=== PATIENT | female | born 1975 | race Two or more races ===

== ENCOUNTER 2018-06-13 08:09 | Outpatient (CLI) | payer OTHER | END 2018-06-13 08:13 | disposition home or self-care (01) | LOC: LAB 08:09 | DX: R59.0 Localized enlarged lymph nodes (principal); E03.8 Other specified hypothyroidism; D50.8 Other iron deficiency anemias; D51.8 Other vitamin B12 deficiency anemias; I10 Essential (primary) hypertension; D51.1 Vitamin B12 deficiency anemia due to selective vitamin B12 malabsorption with proteinuria; D51.0 Vitamin B12 deficiency anemia due to intrinsic factor deficiency; B20 Human immunodeficiency virus [HIV] disease; B18.8 Other chronic viral hepatitis; E06.3 Autoimmune thyroiditis; E27.8 Other specified disorders of adrenal gland ==

== ENCOUNTER 2018-06-13 09:05 | Outpatient (CLI) | payer OTHER | END 2018-06-13 09:55 | disposition home or self-care (01) | LOC: SONOGRAMA 09:05 | DX: R59.0 Localized enlarged lymph nodes (principal); E03.8 Other specified hypothyroidism ==

== ENCOUNTER 2018-12-29 09:43 | Outpatient (CLI) | payer OTHER | END 2018-12-29 15:00 | disposition home or self-care (01) | LOC: LAB 09:43 | DX: K21.9 Gastro-esophageal reflux disease without esophagitis (principal); D51.8 Other vitamin B12 deficiency anemias ==

== ENCOUNTER 2019-01-23 08:15 | Outpatient (CLI) | payer OTHER | END 2019-01-23 08:51 | disposition home or self-care (01) | LOC: LAB 08:15 | DX: R59.0 Localized enlarged lymph nodes (principal); B27.90 Infectious mononucleosis, unspecified without complication; D51.1 Vitamin B12 deficiency anemia due to selective vitamin B12 malabsorption with proteinuria; E03.8 Other specified hypothyroidism; D50.8 Other iron deficiency anemias; D51.8 Other vitamin B12 deficiency anemias; I10 Essential (primary) hypertension; K90.89 Other intestinal malabsorption ==

== ENCOUNTER 2019-02-06 09:12 | Outpatient (CLI) | payer OTHER | END 2019-02-06 09:15 | disposition home or self-care (01) | LOC: SONOGRAMA 09:12 | DX: I11.9 Hypertensive heart disease without heart failure (principal); R06.02 Shortness of breath; D51.1 Vitamin B12 deficiency anemia due to selective vitamin B12 malabsorption with proteinuria; B27.90 Infectious mononucleosis, unspecified without complication; R59.0 Localized enlarged lymph nodes; E03.8 Other specified hypothyroidism ==

== ENCOUNTER 2019-07-17 08:12 | Outpatient (CLI) | payer OTHER | END 2019-07-17 08:20 | disposition home or self-care (01) | LOC: LAB 08:12 | DX: D51.1 Vitamin B12 deficiency anemia due to selective vitamin B12 malabsorption with proteinuria (principal); B27.90 Infectious mononucleosis, unspecified without complication; R59.0 Localized enlarged lymph nodes; E03.8 Other specified hypothyroidism; D50.8 Other iron deficiency anemias; I10 Essential (primary) hypertension ==

== ENCOUNTER 2019-08-04 08:45 | Outpatient (CLI) | payer OTHER | END 2019-08-04 08:52 | disposition home or self-care (01) | LOC: SONOGRAMA 08:45 | DX: N17.8 Other acute kidney failure (principal); R80.8 Other proteinuria ==

== ENCOUNTER 2020-01-16 08:25 | Outpatient (CLI) | payer OTHER | END 2020-01-16 09:08 | disposition home or self-care (01) | LOC: LAB 08:25 | DX: D51.1 Vitamin B12 deficiency anemia due to selective vitamin B12 malabsorption with proteinuria (principal); B27.90 Infectious mononucleosis, unspecified without complication; R59.0 Localized enlarged lymph nodes; E03.8 Other specified hypothyroidism; D50.8 Other iron deficiency anemias; D51.8 Other vitamin B12 deficiency anemias; I10 Essential (primary) hypertension; R97.0 Elevated carcinoembryonic antigen [CEA]; R97.8 Other abnormal tumor markers ==

== ENCOUNTER → 2020-06-10 08:10 | Outpatient (CLI) | payer OTHER | END | disposition home or self-care (01) | LOC: LAB 08:10 | PROVIDERS: ATTEND Internal Medicine Hematology & Oncology | DX: E03.8 Other specified hypothyroidism (principal); L65.8 Other specified nonscarring hair loss; D50.8 Other iron deficiency anemias; I10 Essential (primary) hypertension; B27.90 Infectious mononucleosis, unspecified without complication; E23.0 Hypopituitarism; R89.1 Abnormal level of hormones in specimens from other organs, systems and tissues; D51.1 Vitamin B12 deficiency anemia due to selective vitamin B12 malabsorption with proteinuria; R59.0 Localized enlarged lymph nodes ==

== ENCOUNTER 2021-01-12 07:07 | Outpatient (CLI) | payer OTHER | END 2021-01-12 07:18 | disposition home or self-care (01) | LOC: LAB 07:07 | PROVIDERS: ATTEND Internal Medicine Hematology & Oncology | DX: D50.8 Other iron deficiency anemias (principal); I10 Essential (primary) hypertension; E03.8 Other specified hypothyroidism; D51.1 Vitamin B12 deficiency anemia due to selective vitamin B12 malabsorption with proteinuria; B27.90 Infectious mononucleosis, unspecified without complication; R59.0 Localized enlarged lymph nodes ==

== ENCOUNTER → 2021-06-19 08:34 | Outpatient (CLI) | payer OTHER | END | disposition home or self-care (01) | LOC: LAB 08:34 | PROVIDERS: ATTEND Internal Medicine Hematology & Oncology | DX: I10 Essential (primary) hypertension (principal); R79.89 Other specified abnormal findings of blood chemistry; R74.02 Elevation of levels of lactic acid dehydrogenase [LDH]; E03.8 Other specified hypothyroidism; B27.99 Infectious mononucleosis, unspecified with other complication; D50.8 Other iron deficiency anemias; C56.9 Malignant neoplasm of unspecified ovary; R97.0 Elevated carcinoembryonic antigen [CEA]; R97.8 Other abnormal tumor markers; B27.90 Infectious mononucleosis, unspecified without complication; R59.0 Localized enlarged lymph nodes; E78.2 Mixed hyperlipidemia; E56.8 Deficiency of other vitamins; N19 Unspecified kidney failure; E11.9 Type 2 diabetes mellitus without complications; R80.8 Other proteinuria; K92.1 Melena; Z12.11 Encounter for screening for malignant neoplasm of colon; D51.1 Vitamin B12 deficiency anemia due to selective vitamin B12 malabsorption with proteinuria ==

== ENCOUNTER 2021-12-25 07:23 | Outpatient (CLI) | payer OTHER | END 2021-12-25 07:45 | disposition home or self-care (01) | LOC: LAB 07:23 | PROVIDERS: ATTEND Internal Medicine Hematology & Oncology | DX: D64.9 Anemia, unspecified (principal); D50.8 Other iron deficiency anemias; I10 Essential (primary) hypertension ==

== ENCOUNTER 2022-07-23 07:19 | Outpatient (CLI) | payer OTHER | END 2022-07-23 07:45 | disposition home or self-care (01) | LOC: LAB 07:19 | PROVIDERS: ATTEND Internal Medicine Hematology & Oncology | DX: D50.8 Other iron deficiency anemias (principal); R79.9 Abnormal finding of blood chemistry, unspecified; I10 Essential (primary) hypertension; R74.02 Elevation of levels of lactic acid dehydrogenase [LDH]; K76.89 Other specified diseases of liver; D51.8 Other vitamin B12 deficiency anemias; E55.9 Vitamin D deficiency, unspecified; E03.8 Other specified hypothyroidism; D51.1 Vitamin B12 deficiency anemia due to selective vitamin B12 malabsorption with proteinuria; D72.818 Other decreased white blood cell count; B27.90 Infectious mononucleosis, unspecified without complication; R59.0 Localized enlarged lymph nodes ==

== ENCOUNTER 2022-11-29 07:18 | Outpatient (CLI) | payer OTHER | END 2022-11-29 07:23 | disposition home or self-care (01) | LOC: MRI 07:18 | PROVIDERS: ATTEND Internal Medicine Geriatric Medicine | DX: H81.4 Vertigo of central origin (principal) | CPT/HCPCS: 70551 ==

== ENCOUNTER 2022-12-03 08:21 | Outpatient (CLI) | payer OTHER | END 2022-12-03 08:22 | disposition home or self-care (01) | LOC: NUCLEAR 08:21 | PROVIDERS: ATTEND Internal Medicine Geriatric Medicine | DX: I65.29 Occlusion and stenosis of unspecified carotid artery (principal) ==

== ENCOUNTER 2023-01-20 08:13 | Outpatient (CLI) | payer OTHER | END 2023-01-20 08:14 | disposition home or self-care (01) | LOC: LAB 08:13 | PROVIDERS: ATTEND Internal Medicine Hematology & Oncology | DX: D50.8 Other iron deficiency anemias (principal); R79.9 Abnormal finding of blood chemistry, unspecified; I10 Essential (primary) hypertension; R74.02 Elevation of levels of lactic acid dehydrogenase [LDH]; K76.89 Other specified diseases of liver; D51.8 Other vitamin B12 deficiency anemias; E55.9 Vitamin D deficiency, unspecified; E03.8 Other specified hypothyroidism; D51.1 Vitamin B12 deficiency anemia due to selective vitamin B12 malabsorption with proteinuria; D72.818 Other decreased white blood cell count; B27.90 Infectious mononucleosis, unspecified without complication; R59.0 Localized enlarged lymph nodes ==

== ENCOUNTER → 2023-07-19 09:36 | Outpatient (CLI) | payer OTHER | END | disposition home or self-care (01) | LOC: LAB 09:36 | PROVIDERS: ATTEND Internal Medicine Hematology & Oncology | DX: D50.8 Other iron deficiency anemias (principal); R79.9 Abnormal finding of blood chemistry, unspecified; I10 Essential (primary) hypertension; R74.02 Elevation of levels of lactic acid dehydrogenase [LDH]; K76.89 Other specified diseases of liver; D51.8 Other vitamin B12 deficiency anemias; E55.9 Vitamin D deficiency, unspecified; E03.8 Other specified hypothyroidism; R97.8 Other abnormal tumor markers; R97.1 Elevated cancer antigen 125 [CA 125]; D51.1 Vitamin B12 deficiency anemia due to selective vitamin B12 malabsorption with proteinuria; D72.818 Other decreased white blood cell count; B27.90 Infectious mononucleosis, unspecified without complication; R59.0 Localized enlarged lymph nodes ==

== ENCOUNTER 2023-08-04 09:17 | Outpatient (CLI) | payer OTHER | END 2023-08-04 09:30 | disposition home or self-care (01) | LOC: TOM 09:17 | PROVIDERS: ATTEND Surgery | DX: K40.90 Unilateral inguinal hernia, without obstruction or gangrene, not specified as recurrent (principal) ==

== ENCOUNTER 2023-08-21 13:55 | Outpatient (CLI) | payer OTHER | END 2023-08-21 14:07 | disposition home or self-care (01) | LOC: TOM 13:55 | PROVIDERS: ATTEND Urology | DX: N20.0 Calculus of kidney (principal) ==

== ENCOUNTER 2023-11-20 08:41 | Outpatient (CLI) | payer OTHER ==
[2023-11-20 09:47] LABS: HEMATOCRIT 37.7 % (36.0-45.00); HEMOGLOBIN 13.1 g/dL (12.0-15.00); MEAN CELL VOLUME 93.8 fL (80.00-100.00); MEAN CORPUSCULAR HEMOGLOBIN 32.5 pg (27.00-32.0); MEAN CORPUSCULAR HGB CONC 34.7 g/dl (32.0-36.0); PLATELET COUNT 345 K/uL (150-450); RED BLOOD COUNT 4.02 M/uL (4.00-6.00); RED CELL DISTRIBUTION WIDTH 12.7 % (11.5-14.5)
[2023-11-20 10:23] LABS: ALBUMIN 3.3 gm/dL (3.4-5.0); BILIRUBIN TOTAL 0.39 mg/dL (0.3-1.2); CALCIUM 9.9 mg/dL (8.5-10.1); CHOL HDL RATIO 1.7 (0-5.0); CREATININE SERUM 0.94 mg/dL (0.55-1.02); GFR 63.83; GLOBULINA 3.7 G/DL (2.4-3.5); POTASSIUM 5.01 mEq/L (3.5-5.1); T4 FREE 1.1 NG/ML (0.76-1.46); TSH 2.01 uIU/mL (0.358-3.74)
[2023-11-20 10:24] LABS: PH,URINE 6.5 (5.0-8.0); URINE APPEARANCE Clear; URINE BILIRRUBIN Negative (NEGATIVE); URINE BLOOD Small; URINE COLOR Yellow; URINE GLUCOSE Negative (NEGATIVE); URINE LEUKOCYTE Negative; URINE NITRATE Negative; URINE PROTEIN Negative (NEGATIVE); URINE UROBILINOGEN 0.2 E.U./dl
[2023-11-20 10:29] LABS: URINE BACTERIA 22.6 uL (0.0-1933); URINE EPITHELIAL CELLS 2.5 uL (0.0-38.8); URINE RBC 11.4 uL (0.0-20.8)
[2023-11-20 10:31] LABS: URINE WBC 0.1 uL (0.0-23.2)
[2023-11-20 10:45] LABS: FOLIC ACID > 20.00 ng/ml (4.78-20)
[2023-11-20 13:16] LABS: MANUAL PLATELET COUNT 520
[2023-11-20 13:17] LABS: PLATELET ESTIMATE INCREASED (NORMAL)
== END 2023-11-20 08:43 | disposition home or self-care (01) ==
LOC: LAB 08:41
PROVIDERS: ATTEND Internal Medicine Hematology & Oncology
DX: D51.1 Vitamin B12 deficiency anemia due to selective vitamin B12 malabsorption with proteinuria (principal); D72.818 Other decreased white blood cell count; B27.90 Infectious mononucleosis, unspecified without complication; R59.0 Localized enlarged lymph nodes; E03.8 Other specified hypothyroidism

== ENCOUNTER 2023-12-19 08:50 | Outpatient (CLI) | payer OTHER | END 2023-12-19 09:01 | disposition home or self-care (01) | LOC: MRI 08:50 | PROVIDERS: ATTEND Internal Medicine Hematology & Oncology | DX: D51.1 Vitamin B12 deficiency anemia due to selective vitamin B12 malabsorption with proteinuria (principal); D72.818 Other decreased white blood cell count; B27.90 Infectious mononucleosis, unspecified without complication; R59.0 Localized enlarged lymph nodes; E03.8 Other specified hypothyroidism | CPT/HCPCS: 72197; 74183 ==

== ENCOUNTER → 2024-06-28 08:19 | Outpatient (CLI) | payer OTHER ==
[2024-06-28 09:26] LABS: HEMOGLOBIN 12.8 g/dL (12.0-15.00); MEAN CELL VOLUME 94.2 fL (80.00-100.00); MEAN CORPUSCULAR HEMOGLOBIN 32.6 pg (27.00-32.0); MEAN CORPUSCULAR HGB CONC 34.6 g/dl (32.0-36.0); PLATELET COUNT 231 K/uL (150-450); RED BLOOD COUNT 3.92 M/uL (4.00-6.00); RED CELL DISTRIBUTION WIDTH 12.7 % (11.5-14.5)
[2024-06-28 10:04] LABS: % SATURACION 24.8 % (15-50); ALBUMIN 3.5 gm/dL (3.4-5.0); BILIRUBIN TOTAL 0.39 mg/dL (0.3-1.2); CALCIUM 9.2 mg/dL (8.5-10.1); CREATININE SERUM 0.85 mg/dL (0.55-1.02); FERRITIN 25.2 NG/ML (8-252); GFR 71.38; GLOBULINA 3.3 G/DL (2.4-3.5); PHOSPHOROUS 3.4 mg/dL (2.5-4.9); POTASSIUM 4.37 mEq/L (3.5-5.1); TOTAL PROTEIN 6.8 gm/dL (6.4-8.2)
[2024-06-28 11:28] LABS: VITAMIN D3 25 HYDROXY 62.55 ng/ml (30-120)
[2024-06-29 07:57] LABS: PLATELET ESTIMATE NORMAL (NORMAL)
[2024-06-29 08:13] LABS: MANUAL PLATELET COUNT 330
[2024-06-29 09:07] LABS: CA 125 8.6 U/mL (0.0-38.1); CA 15-3 23.8 U/mL (0.0-25.0)
== END | disposition home or self-care (01) ==
LOC: LAB 08:19
PROVIDERS: ATTEND Internal Medicine Hematology & Oncology
DX: D50.8 Other iron deficiency anemias (principal); R79.9 Abnormal finding of blood chemistry, unspecified; I10 Essential (primary) hypertension; R74.02 Elevation of levels of lactic acid dehydrogenase [LDH]; K76.89 Other specified diseases of liver; E55.9 Vitamin D deficiency, unspecified; C50.919 Malignant neoplasm of unspecified site of unspecified female breast; R97.8 Other abnormal tumor markers; C56.9 Malignant neoplasm of unspecified ovary; R97.1 Elevated cancer antigen 125 [CA 125]; R97.0 Elevated carcinoembryonic antigen [CEA]; D51.1 Vitamin B12 deficiency anemia due to selective vitamin B12 malabsorption with proteinuria; D72.818 Other decreased white blood cell count; B27.90 Infectious mononucleosis, unspecified without complication; R59.0 Localized enlarged lymph nodes; E03.8 Other specified hypothyroidism; R80.9 Proteinuria, unspecified

== ENCOUNTER 2025-01-08 08:45 | Outpatient (CLI) | payer OTHER ==
[2025-01-08 10:36] LABS: HEMATOCRIT 36.9 % (36.0-45.00); MEAN CELL VOLUME 92.4 fL (80.00-100.00); MEAN CORPUSCULAR HEMOGLOBIN 32.4 pg (27.00-32.0); MEAN CORPUSCULAR HGB CONC 35.1 g/dl (32.0-36.0); PLATELET COUNT 253 K/uL (150-450); RED CELL DISTRIBUTION WIDTH 12.6 % (11.5-14.5)
[2025-01-08 11:07] LABS: ALBUMIN 3.4 gm/dL (3.4-5.0); BILIRUBIN TOTAL 0.55 mg/dL (0.3-1.2); CALCIUM 9.1 mg/dL (8.5-10.1); CREATININE SERUM 0.89 mg/dL (0.55-1.02); FERRITIN 27.4 NG/ML (8-252); GFR 67.41; GLOBULINA 3.4 G/DL (2.4-3.5); POTASSIUM 4.31 mEq/L (3.5-5.1); T4 FREE 1.15 NG/ML (0.76-1.46); TOTAL PROTEIN 6.8 gm/dL (6.4-8.2); TSH 2.37 uIU/mL (0.358-3.74)
[2025-01-09 16:59] LABS: FOLIC ACID > 20.00 ng/ml (4.78-20); VITAMIN D3 25 HYDROXY 61.52 ng/ml (30-120)
[2025-01-10 10:05] LABS: MANUAL PLATELET COUNT 414
== END 2025-01-08 08:46 | disposition home or self-care (01) ==
LOC: LAB 08:45
PROVIDERS: ATTEND Internal Medicine Hematology & Oncology
DX: D51.1 Vitamin B12 deficiency anemia due to selective vitamin B12 malabsorption with proteinuria (principal); D72.818 Other decreased white blood cell count; B27.90 Infectious mononucleosis, unspecified without complication; R59.0 Localized enlarged lymph nodes; E03.8 Other specified hypothyroidism; E04.1 Nontoxic single thyroid nodule; D50.8 Other iron deficiency anemias; R79.9 Abnormal finding of blood chemistry, unspecified; I10 Essential (primary) hypertension; R74.02 Elevation of levels of lactic acid dehydrogenase [LDH]; K76.89 Other specified diseases of liver; E55.9 Vitamin D deficiency, unspecified

== ENCOUNTER → 2025-07-16 08:53 | Outpatient (CLI) | payer OTHER ==
[2025-07-16 10:29] LABS: BASO % 0.5 % (0.1-1.2); EOS # 0.08 (0.04-0.54); EOS % 1.4 % (0.7-7.0); LYMPH # 1.47 (1.18-3.74); LYMPH % 26.6 % (19.3-53.1); MEAN PLATELET VOLUME 9.30 fl (9.4-12.4); MONO # 0.43 (0.24-0.82); MONO % 7.8 % (4.7-12.5); NEUT # 3.50 (1.56-6.13); NEUT % 63.5 % (34.0-71.1); RED CELL DISTRIBUTION WIDTH 11.9 % (11.6-14.4)
[2025-07-16 11:31] LABS: % SATURACION 32.7 % (15-50); ALT/SGPT 18.0 U/L (12-78); AST/SGOT 16.0 U/L (15-37); BILIRUBIN TOTAL 0.52 mg/dL (0.3-1.2); BUN CREA RATIO 22.0 (7.0-25.0); CHOL HDL RATIO 2.0 (0-5.0); CREATININE SERUM 0.97 mg/dL (0.55-1.02); FE 159.0 ug/dl (50-170); GFR 61.04; GLOBULINA 3.6 G/DL (2.4-3.5); GLUCOSE FASTING 89.0 mg/dL (65-100); HDL 94.0 mg/dl (40-60); LDH 128.0 U/L (84-246); LDL 66.0 mg/dl (0-130); OSMOLALITY SERUM 278.0 MOSM/KG (275-295); T4 FREE 1.05 NG/ML (0.76-1.46); TSH 3.58 uIU/mL (0.358-3.74); VLDL 23.0 (0-39)
[2025-07-17 11:42] LABS: FOLIC ACID 12.23 ng/ml (4.78-20); VITAMIN D3 25 HYDROXY 56.97 ng/ml (30-120)
== END | disposition home or self-care (01) ==
LOC: LAB 08:53
PROVIDERS: ATTEND Internal Medicine Hematology & Oncology
DX: E11.65 Type 2 diabetes mellitus with hyperglycemia (principal); E03.8 Other specified hypothyroidism; I10 Essential (primary) hypertension; E78.5 Hyperlipidemia, unspecified; D51.1 Vitamin B12 deficiency anemia due to selective vitamin B12 malabsorption with proteinuria; D72.818 Other decreased white blood cell count; B27.90 Infectious mononucleosis, unspecified without complication; R59.0 Localized enlarged lymph nodes; E04.1 Nontoxic single thyroid nodule; D50.8 Other iron deficiency anemias; R79.9 Abnormal finding of blood chemistry, unspecified; R74.02 Elevation of levels of lactic acid dehydrogenase [LDH]; K76.89 Other specified diseases of liver; E55.9 Vitamin D deficiency, unspecified